=== PATIENT | male | born 1970 | race African-American/Black ===

== ENCOUNTER 2018-10-13 09:24 | Emergency (ER) | payer MEDICAID ==
[2018-10-13] MEDS ORDERED: predniSONE 20 MG TAB ONE (12:29)
[2018-10-13] MEDS ORDERED: Ibuprofen 800 MG TAB ONE (12:29)
--- NOTE | 2018-10-13 12:56 | RAD ---
PA AND LATERAL VIEWS CHEST: HISTORY: Cough and dyspnea. FINDINGS: Comparison is made with the exam of 01/11/2010. The heart size is normal. The lungs are expanded without focal areas of consolidation, pneumothorace s, or pleural effusions. No acute osseous abnormalities are seen. IMPRESSION: No radiographic evidence of acute cardiopulmonary process. POS: OFF
== END 2018-10-13 13:28 | disposition home or self-care (01) ==
LOC: ERS 09:24
DX: J45.901 Unspecified asthma with (acute) exacerbation (principal); I10 Essential (primary) hypertension; Z87.891 Personal history of nicotine dependence
CPT/HCPCS: 71046; 94640; J7512; J7620

== ENCOUNTER 2018-11-19 17:36 | Emergency (ER) | payer OTHER ==
[2018-11-19 18:14] LABS: Bilirubin Negative (Negative); Blood, Urine Negative (Negative); Clarity CLEAR (Clear); Glucose, Urine (Dipstick) Negative (Negative); Leukocyte Moderate (Negative); Nitrite Negative (Negative); Protein, Urine (Dipstick) Negative (Neg-Trace); Specific Gravity, Urine 1.025 (1.002-1.036); pH, Urine 6.5 (5.0-9.0)
[2018-11-19 18:15] LABS: Bacteria/HPF None Seen HPF (None Seen); Hyaline Casts/LPF 4-6 HYALINE CAST LPF (0-3 Hyaline); Pathc Cast-AUWi Flag 0.13 (0-2.49); RBC/HPF 0-3 HPF (0-3); Squamous Epithelial None Seen HPF (0-3)
[2018-11-19] MEDS ORDERED: cefTRIAXone\\ROCEPHIN 250 MG VIAL ONE (18:22)
[2018-11-19] MEDS ORDERED: Lidocaine 1% PF 5 ML VIAL ONE (18:22)
[2018-11-19] MEDS ORDERED: Azithromycin 250 MG TAB ONE (18:22)
[2018-11-22 00:02] LABS: Chlam.trachomatis by PCR,Urine Not Detected (NotDetected)
== END 2018-11-19 19:06 | disposition home or self-care (01) ==
LOC: ERS 17:36
DX: N39.0 Urinary tract infection, site not specified (principal); A64 Unspecified sexually transmitted disease; F20.9 Schizophrenia, unspecified; I10 Essential (primary) hypertension; J45.909 Unspecified asthma, uncomplicated
CPT/HCPCS: 81003; 81015; 87086; 87491; 87591; 96372; J0696; J2001

== ENCOUNTER 2019-07-29 01:12 | Emergency (ER) | payer OTHER ==
[2019-07-29] MEDS ORDERED: Cyclobenzaprine 10 MG TAB ONE (02:13)
--- NOTE | 2019-07-29 08:33 | RAD ---
EXAM: Chest 2 views: HISTORY: Left arm pain and numbness COMPARISON: 10/13/2018 FINDINGS: There is a normal-sized cardiomediastinal silhouette. There is no evidence of consolidation, mass, or pleural effusion. The bones are unremarkable. IMPRESSION: No evidence of acute cardiopulmonary disease
== END 2019-07-29 02:55 | disposition home or self-care (01) ==
LOC: ERS 01:12
DX: M54.12 Radiculopathy, cervical region (principal); M25.512 Pain in left shoulder; I10 Essential (primary) hypertension; J45.909 Unspecified asthma, uncomplicated; F20.9 Schizophrenia, unspecified
CPT/HCPCS: 71046

== ENCOUNTER 2019-08-12 12:08 | Emergency (ER) | payer OTHER ==
[2019-08-12] MEDS ORDERED: Diazepam 5 MG TAB ONE (13:59)
[2019-08-12] MEDS ORDERED: Ketorolac Tromethamine 60 MG/2 ML VIAL ONE (13:59)
[2019-08-12] MEDS ORDERED: Dexamethasone 10 MG/ML VIAL ONE (13:59)
== END 2019-08-12 14:21 | disposition home or self-care (01) ==
LOC: ERS 12:08
DX: M25.511 Pain in right shoulder (principal); I10 Essential (primary) hypertension; J45.909 Unspecified asthma, uncomplicated; F20.9 Schizophrenia, unspecified
CPT/HCPCS: 96372; 99283; J1100; J1885

== ENCOUNTER 2020-09-22 13:07 | Emergency (ER) | payer OTHER ==
[2020-09-22 13:38] LABS: #Eosinphils 0.1 thou/uL (0.0-0.7); #Lymphocytes 1.4 thou/uL (1.20-3.40); #Monocytes 0.7 thou/uL (0.11-0.59); #Neutrophils 9.7 thou/uL (1.40-6.50); %Basophils 0.2 % (0.0-1.0); %Eosinophils 0.4 % (0.0-10.0); %Lymphocytes 12.1 % (21.0-51.0); %Monocytes 5.7 % (0.0-10.0); %Neutrophils 81.5 % (42.0-75.0); Hemoglobin 14.8 g/dL (14.0-18.0); Mean Corpuscular HGB CONC 33.6 g/dL (32.0-36.0); Mean Corpuscular Hemoglobin 30.9 pg (27.0-31.0); Mean Corpuscular Volume 91.9 fL (78.0-98.0); Mean Platelet Volume 6.6 fL (7.4-10.4); Platelet Count 319 thou/uL (130-400); RBC Distribution Width 11.6 % (11.5-14.5); Red Blood Cell (RBC) Count 4.81 mill/uL (4.70-6.10); White Blood Cell (WBC) Count 11.9 thou/uL (4.8-10.8)
[2020-09-22 13:58] LABS: ALT (SGPT) 39 U/L (8-55); AST (SGOT) 29 U/L (5-34); Albumin 4.4 g/dL (3.5-5.0); Alkaline Phosphatase 64 U/L (40-110); Anion Gap 14 mmol/L (10-20); BUN (Urea Nitrogen) 14 mg/dL (8.9-20.6); Bilirubin, Total 0.6 mg/dL (0.2-1.2); Calc. Creatinine Clearance 0 mL/min (70-130); Calcium 9.5 mg/dL (7.8-10.44); Carbon Dioxide 22 mmol/L (22-29); Chloride 102 mmol/L (98-107); Globulin 3.4 g/dL (2.4-3.5); Glucose 102 mg/dL (70-105); Potassium 4.1 mmol/L (3.5-5.1); Protein, Total 7.8 g/dL (6.0-8.3); Sodium 134 mmol/L (136-145)
[2020-09-22] MEDS ORDERED: Magnevist 469MG/ML 20 ML VIAL ONE (15:02)
[2020-09-22 15:09] LABS: Bacteria/HPF None Seen HPF (None Seen); Bilirubin Negative (Negative); Blood, Urine Trace (Negative); Clarity Clear (Clear); Glucose, Urine (Dipstick) Normal (Negative); Ketone, Urine Negative (Negative); Leukocyte Negative Leu/uL (Negative); Nitrite Negative (Negative); Protein, Urine (Dipstick) Negative (Neg-Trace); RBC/HPF 0-3 HPF (0-3); Specific Gravity, Urine 1.023 (1.002-1.036); Squamous Epithelial 0-3 HPF (0-3); Urobilinogen Normal mg/dL (Less than 2)
[2020-09-22] MEDS ORDERED: Acetaminophen 500 MG TAB ONE (16:11)
[2020-09-22] MEDS ORDERED: Ketorolac Tromethamine 30 MG/ML VIAL ONE (20:42)
== END 2020-09-22 20:51 | disposition home or self-care (01) ==
LOC: ERS 13:07
DX: M62.830 Muscle spasm of back (principal); I10 Essential (primary) hypertension; J45.909 Unspecified asthma, uncomplicated
CPT/HCPCS: 36415; 72158; 80053; 81003; 81015; 82274; 83690; 85025; 86850; 86900; 86901; 96372; A9579; J1885

== ENCOUNTER 2020-12-12 15:56 | Emergency (ER) | payer OTHER ==
[2020-12-12 23:35] LABS: SARS-CoV-2 PCR by NAA DETECTED (NotDetected)
== END 2020-12-12 16:38 | disposition home or self-care (01) ==
LOC: ERS 15:56
DX: U07.1 COVID-19 (principal); J45.909 Unspecified asthma, uncomplicated
CPT/HCPCS: 99283; U0003; U0005

== ENCOUNTER 2020-12-17 01:11 | Emergency (ER) | payer OTHER ==
[2020-12-17] MEDS ORDERED: Acetaminophen 500 MG TAB ONE (03:11)
[2020-12-17] MEDS ORDERED: predniSONE 20 MG TAB ONE (03:11)
[2020-12-17] MEDS ORDERED: Ketorolac Tromethamine 30 MG/ML VIAL ONE (03:11)
== END 2020-12-17 04:11 | disposition home or self-care (01) ==
LOC: ERS 01:11
DX: U07.1 COVID-19 (principal); I10 Essential (primary) hypertension; J45.909 Unspecified asthma, uncomplicated; Z79.899 Other long term (current) drug therapy
CPT/HCPCS: 36415; 71045; 84484; 93005; 96372; J1885; J7512

== ENCOUNTER 2022-03-18 20:59 | Emergency (ER) | payer OTHER ==
[2022-03-18 21:26] LABS: Bilirubin Negative (Negative); Blood, Urine Negative (Negative); Clarity Turbid (Clear); Glucose, Urine (Dipstick) Normal (Negative); Ketone, Urine Negative (Negative); Leukocyte Negative Leu/uL (Negative); Nitrite Negative (Negative); Protein, Urine (Dipstick) Negative (Neg-Trace); Specific Gravity, Urine 1.018 (1.002-1.036); Urobilinogen Normal mg/dL (Less than 2)
[2022-03-18 21:50] LABS: #Basophils 0.1 thou/uL (0.0-0.2); #Eosinphils 0.1 thou/uL (0.0-0.7); #Lymphocytes 2.6 thou/uL (1.20-3.40); #Monocytes 0.5 thou/uL (0.11-0.59); #Neutrophils 3.2 thou/uL (1.40-6.50); %Basophils 0.9 % (0.0-1.0); %Eosinophils 2.3 % (0.0-10.0); %Lymphocytes 39.5 % (21.0-51.0); %Neutrophils 49.3 % (42.0-75.0); Hemoglobin 13.8 g/dL (14.0-18.0); Mean Corpuscular HGB CONC 32.6 g/dL (32.0-36.0); Mean Corpuscular Hemoglobin 30.2 pg (27.0-31.0); Mean Corpuscular Volume 92.5 fL (78.0-98.0); Mean Platelet Volume 6.8 fL (7.4-10.4); Platelet Count 325 thou/uL (130-400); RBC Distribution Width 11.9 % (11.5-14.5); Red Blood Cell (RBC) Count 4.58 mill/uL (4.70-6.10); White Blood Cell (WBC) Count 6.5 thou/uL (4.8-10.8)
[2022-03-18] MEDS ORDERED: Ondansetron ODT 4 MG TAB ONE (22:11)
[2022-03-18] MEDS ORDERED: Acetaminophen 500 MG TAB ONE (22:11)
[2022-03-18 23:05] LABS: ALT (SGPT) 38 U/L (8-55); AST (SGOT) 24 U/L (5-34); Albumin 4.3 g/dL (3.5-5.0); Alkaline Phosphatase 64 U/L (40-110); Anion Gap 12 mmol/L (10-20); BUN (Urea Nitrogen) 12 mg/dL (8.4-25.7); Bilirubin, Total 0.3 mg/dL (0.2-1.2); Calc. Creatinine Clearance 0 mL/min (70-130); Calcium 10.3 mg/dL (7.8-10.44); Carbon Dioxide 27 mmol/L (22-29); Chloride 101 mmol/L (98-107); Estimated GFR 67; Globulin 2.8 g/dL (2.4-3.5); Glucose 106 mg/dL (70-105); Potassium 4.3 mmol/L (3.5-5.1); Protein, Total 7.1 g/dL (6.0-8.3); Sodium 136 mmol/L (136-145)
== END 2022-03-19 00:05 | disposition home or self-care (01) ==
LOC: ERS 20:59
DX: M62.830 Muscle spasm of back (principal); I10 Essential (primary) hypertension; J45.909 Unspecified asthma, uncomplicated; Z87.891 Personal history of nicotine dependence
CPT/HCPCS: 36415; 74176; 80053; 81003; 85025; Q0162

== ENCOUNTER 2022-06-23 10:14 | Emergency (ER) | payer OTHER ==
[2022-06-23 10:48] LABS: #Eosinphils 0.1 thou/uL (0.0-0.7); #Lymphocytes 2.2 thou/uL (1.20-3.40); #Monocytes 0.7 thou/uL (0.11-0.59); #Neutrophils 2.4 thou/uL (1.40-6.50); %Eosinophils 1.5 % (0.0-10.0); %Lymphocytes 40.5 % (21.0-51.0); %Monocytes 12.9 % (0.0-10.0); %Neutrophils 45.1 % (42.0-75.0); Hemoglobin 14.8 g/dL (14.0-18.0); Mean Corpuscular HGB CONC 33.5 g/dL (32.0-36.0); Mean Corpuscular Hemoglobin 30.5 pg (27.0-31.0); Mean Corpuscular Volume 91.2 fl (78.0-98.0); Mean Platelet Volume 6.6 fL (7.4-10.4); Platelet Count 339 10x3/uL (130-400); RBC Distribution Width 12.1 % (11.5-14.5); Red Blood Cell (RBC) Count 4.83 mill/uL (4.70-6.10); White Blood Cell (WBC) Count 5.4 10x3/uL (4.8-10.8)
[2022-06-23 11:27] LABS: ALT (SGPT) 28 U/L (8-55); AST (SGOT) 24 U/L (5-34); Albumin 4.6 g/dL (3.5-5.0); Alkaline Phosphatase 72 U/L (40-110); Anion Gap 11 mmol/L (10-20); BUN (Urea Nitrogen) 13 mg/dL (8.4-25.7); Bilirubin, Total 0.6 mg/dL (0.2-1.2); Calc. Creatinine Clearance 0 mL/min (70-130); Calcium 9.4 mg/dL (7.8-10.44); Carbon Dioxide 23 mmol/L (22-29); Chloride 104 mmol/L (98-107); Estimated GFR 81; Globulin 2.8 g/dL (2.4-3.5); Glucose 102 mg/dL (70-105); Lipase 23 U/L (8-78); Potassium 4.2 mmol/L (3.5-5.1); Protein, Total 7.4 g/dL (6.0-8.3); Sodium 134 mmol/L (136-145)
[2022-06-23] MEDS ORDERED: Ketorolac Tromethamine 30 MG/ML VIAL ONE (13:09)
== END 2022-06-23 13:31 | disposition home or self-care (01) ==
LOC: ERS 10:14
DX: J06.9 Acute upper respiratory infection, unspecified (principal); M79.18 Myalgia, other site; Z20.822 Contact with and (suspected) exposure to COVID-19; I10 Essential (primary) hypertension
CPT/HCPCS: 36415; 71045; 80053; 83690; 85025; 96372; J1885

== ENCOUNTER 2022-08-26 12:41 | Emergency (ER) | payer OTHER ==
[2022-08-26 13:56] LABS: #Eosinphils 0.1 thou/uL (0.0-0.7); #Lymphocytes 1.7 thou/uL (1.20-3.40); #Monocytes 0.3 thou/uL (0.11-0.59); #Neutrophils 2.4 thou/uL (1.40-6.50); %Basophils 0.7 % (0.0-1.0); %Eosinophils 1.8 % (0.0-10.0); %Lymphocytes 36.3 % (21.0-51.0); %Monocytes 7.4 % (0.0-10.0); %Neutrophils 53.7 % (42.0-75.0); Hemoglobin 14.8 g/dL (14.0-18.0); Mean Corpuscular HGB CONC 32.9 g/dL (32.0-36.0); Mean Corpuscular Hemoglobin 30.4 pg (27.0-31.0); Mean Corpuscular Volume 92.3 fl (78.0-98.0); Mean Platelet Volume 6.9 fL (7.4-10.4); Platelet Count 318 10x3/uL (130-400); RBC Distribution Width 11.8 % (11.5-14.5); Red Blood Cell (RBC) Count 4.88 mill/uL (4.70-6.10); White Blood Cell (WBC) Count 4.6 10x3/uL (4.8-10.8)
[2022-08-26] MEDS ORDERED: Ketorolac Tromethamine 30 MG/ML VIAL ONE (14:03)
[2022-08-26 14:15] LABS: ALT (SGPT) 40 U/L (8-55); AST (SGOT) 27 U/L (5-34); Albumin 4.7 g/dL (3.5-5.0); Alkaline Phosphatase 73 U/L (40-110); Anion Gap 14 mmol/L (10-20); BUN (Urea Nitrogen) 14 mg/dL (8.4-25.7); Bilirubin, Total 0.4 mg/dL (0.2-1.2); Calc. Creatinine Clearance 0 mL/min (70-130); Calcium 9.8 mg/dL (7.8-10.44); Carbon Dioxide 24 mmol/L (22-29); Chloride 105 mmol/L (98-107); Estimated GFR 75; Globulin 3.2 g/dL (2.4-3.5); Glucose 85 mg/dL (70-105); Protein, Total 7.9 g/dL (6.0-8.3); Sodium 139 mmol/L (136-145)
[2022-08-26 15:23] LABS: Bacteria/HPF None Seen HPF (None Seen); Bilirubin Negative (Negative); Blood, Urine Trace (Negative); Clarity Clear (Clear); Glucose, Urine (Dipstick) Normal (Negative); Ketone, Urine Negative (Negative); Leukocyte Negative Leu/uL (Negative); Nitrite Negative (Negative); Protein, Urine (Dipstick) Negative (Neg-Trace); RBC/HPF 0-3 HPF (0-3); Specific Gravity, Urine 1.026 (1.002-1.036); Squamous Epithelial 0-3 HPF (0-3); Urobilinogen Normal mg/dL (Less than 2); pH, Urine 5.5 (5.0-9.0)
== END 2022-08-26 16:00 | disposition home or self-care (01) ==
LOC: ERS 12:41
DX: R31.9 Hematuria, unspecified (principal); J06.9 Acute upper respiratory infection, unspecified; I10 Essential (primary) hypertension
CPT/HCPCS: 36415; 80053; 81003; 81015; 85025; 96372; 99283; J1885

== ENCOUNTER 2022-10-21 10:23 | Outpatient (CLI) | payer OTHER | END 2022-10-21 10:24 | disposition home or self-care (01) | LOC: BICRAD 10:23 | PROVIDERS: ATTEND Nurse Practitioner Family | DX: R05.1 Acute cough (principal) | CPT/HCPCS: 36415; 71046; 80053; 80061; 85025; 87338 ==

== ENCOUNTER 2023-12-12 21:04 | Emergency (ER) | payer OTHER | END 2023-12-13 01:50 | disposition home or self-care (01) | LOC: ERS 21:04 | DX: J18.9 Pneumonia, unspecified organism (principal); I10 Essential (primary) hypertension | CPT/HCPCS: 36415; 71046; 80053; 83605; 83735; 83880; 84484; 85025; 93005; J1100 ==